=== PATIENT | female | born 1990 | race Caucasian/White ===

== ENCOUNTER 2016-11-23 16:03 | Emergency (ER) | payer OTHER ==
[~2016-11-23] VITALS: Ht 172.7 cm; Wt 136.1 kg
[2016-11-23] MEDS ORDERED: PREDNISONE 20 M20 MG PO (16:55)
[2016-11-23 17:20] VITALS: BP 155/84
== END 2016-11-23 17:21 | disposition home or self-care (01) ==
LOC: ER 16:03
DX: R06.02 Shortness of breath (principal); L29.9 Pruritus, unspecified; T38.5X5A Adverse effect of other estrogens and progestogens, initial encounter; Y92.89 Other specified places as the place of occurrence of the external cause; Z88.0 Allergy status to penicillin; Z88.1 Allergy status to other antibiotic agents; Z88.8 Allergy status to other drugs, medicaments and biological substances

== ENCOUNTER 2017-03-24 11:09 | Emergency (ER) | payer OTHER ==
[~2017-03-24] VITALS: Ht 175.3 cm; Wt 149.7 kg
[~2017-03-24 11:09] MED LIST: PREDNISONE 20 M20 MG PO
[2017-03-24 11:42] LABS: URINE BILIRUBIN NEGATIVE (Negative); URINE BLOOD 1+ (Negative); URINE CLARITY CLEAR; URINE COLOR YELLOW; URINE GLUCOSE-RANDOM* NEGATIVE (Negative); URINE KETONES NEGATIVE (Negative); URINE LEUKOCYTES NEGATIVE (Negative); URINE NITRITE NEGATIVE (Negative); URINE PROTEIN (DIPSTICK) NEGATIVE (Negative); URINE UROBILINOGEN 0.2 E.U./dl (0.2-1.0)
[2017-03-24 11:58] LABS: CASTS None Seen /LPF (None Seen); CRYSTALS None Seen /LPF (None Seen); SQUAMOUS >10 Many /LPF (0-3); URINE WBC 0-5 Rare /HPF (0-5)
[2017-03-24 11:59] LABS: BACTERIA 1-9 Few /HPF (None Seen); URINE RBC 3-10 Few /HPF (0-2)
[2017-03-24] MEDS ORDERED: MOBIC15 MG PO (14:58)
== END 2017-03-24 15:45 | disposition home or self-care (01) ==
LOC: ER 11:09
PROVIDERS: Nurse Practitioner
DX: N83.201 Unspecified ovarian cyst, right side (principal); N93.8 Other specified abnormal uterine and vaginal bleeding; Z88.0 Allergy status to penicillin; Z88.1 Allergy status to other antibiotic agents; Z88.8 Allergy status to other drugs, medicaments and biological substances

== ENCOUNTER 2017-04-10 12:40 | Emergency (ER) | payer OTHER ==
[~2017-04-10] VITALS: Ht 175.3 cm; Wt 145.2 kg
[~2017-04-10 12:40] MED LIST changes: +MOBIC15 MG PO
[2017-04-10] MEDS ORDERED: RIZATRIPTAN10 MG PO (12:55)
[2017-04-10] MEDS ORDERED: NEURONTIN100 MG PO (12:55)
[2017-04-10 13:14] LABS: ABSOLUTE NEUTROPHILS 5.5 thou/uL (1.4-8.2); BASOPHILS 0.8 % (0.0-2.0); EOSINOPHILS 1.2 % (0.0-3.0); HEMOGLOBIN 15.1 gm/dL (12.0-15.0); LYMPHOCYTES 24.2 % (24.0-44.0); MCH 31.1 pg (26.0-34.0); MCHC 34.3 g/dL (28.0-37.0); MCV 90.9 fL (80.0-100.0); MONOCYTES 9.6 % (1.0-8.0); PLATELET COUNT 286 thou/uL (150-400); POLYS 64.2 % (36.0-66.0); RBC 4.84 mil/uL (4.20-5.00); RDW 13.1 % (10.5-14.5); WBC 8.6 thou/uL (4.0-11.0)
[2017-04-10 13:18] LABS: URINE BILIRUBIN NEGATIVE (Negative); URINE BLOOD TRACE (Negative); URINE CLARITY CLEAR; URINE COLOR YELLOW; URINE GLUCOSE-RANDOM* NEGATIVE (Negative); URINE KETONES NEGATIVE (Negative); URINE LEUKOCYTES NEGATIVE (Negative); URINE NITRITE NEGATIVE (Negative); URINE PROTEIN (DIPSTICK) NEGATIVE (Negative); URINE UROBILINOGEN 0.2 E.U./dl (0.2-1.0)
[2017-04-10 13:21] LABS: CREATININE 0.8 mg/dL (0.6-1.0); POTASSIUM 4.2 mmol/L (3.5-5.1)
[2017-04-10 13:27] LABS: ALBUMIN 3.4 g/dL (3.4-5.0); TOTAL BILIRUBIN 0.2 mg/dL (<0.1-1.0); TOTAL PROTEIN 7.3 g/dL (6.4-8.2)
[2017-04-10] MEDS ORDERED: TRAMADOL 50 MG50 MG PO (14:22)
== END 2017-04-10 14:32 | disposition home or self-care (01) ==
LOC: ER 12:40
PROVIDERS: Nurse Practitioner Family
DX: N83.201 Unspecified ovarian cyst, right side (principal); Z88.0 Allergy status to penicillin; Z88.1 Allergy status to other antibiotic agents; Z88.8 Allergy status to other drugs, medicaments and biological substances

== ENCOUNTER 2017-05-26 10:57 | Emergency (ER) | payer OTHER ==
[~2017-05-26] VITALS: Ht 170.2 cm; Wt 145.2 kg
--- NOTE | ~2017-05-26 | EKG ---
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
[~2017-05-26 10:57] MED LIST changes: +NEURONTIN100 MG PO; +RIZATRIPTAN10 MG PO; +TRAMADOL 50 MG50 MG PO
[2017-05-26 11:50] LABS: HEMOGLOBIN 14.9 gm/dL (12.0-15.0); RDW 12.9 % (10.5-14.5)
[2017-05-26 11:52] LABS: ABSOLUTE NEUTROPHILS 5.5 thou/uL (1.4-8.2); BASOPHILS 0.5 % (0.0-2.0); EOSINOPHILS 0.7 % (0.0-3.0); HEMATOCRIT 43.4 % (37.0-47.0); LYMPHOCYTES 15.9 % (24.0-44.0); MCH 31.3 pg (26.0-34.0); MCHC 34.4 g/dL (28.0-37.0); MCV 91.1 fL (80.0-100.0); MONOCYTES 7.2 % (1.0-8.0); PLATELET COUNT 312 thou/uL (150-400); POLYS 75.7 % (36.0-66.0); RBC 4.77 mil/uL (4.20-5.00); WBC 7.2 thou/uL (4.0-11.0)
[2017-05-26 11:59] LABS: ANION GAP 10 mmol/L (7-16); BUN 8 mg/dL (7-18); CALCIUM 9.4 mg/dL (8.5-10.1); CHLORIDE 105 mmol/L (98-107); CO2 24 mmol/L (21-32); CREATININE 0.9 mg/dL (0.6-1.0); GLUCOSE 114 mg/dL (74-106); POTASSIUM 3.8 mmol/L (3.5-5.1); SODIUM 139 mmol/L (136-145)
[2017-05-26 12:10] LABS: TROPONIN-I < 0.04 ng/mL (<0.06)
[2017-05-26 13:12] VITALS: BP 152/80
[2017-05-26] MEDS ORDERED: XANAX1 MG PO (13:28)
== END 2017-05-26 13:42 | disposition home or self-care (01) ==
LOC: ER 10:57
PROVIDERS: Emergency Medicine
DX: R07.89 Other chest pain (principal); F41.9 Anxiety disorder, unspecified; F32.9 Major depressive disorder, single episode, unspecified; Z88.0 Allergy status to penicillin; Z88.8 Allergy status to other drugs, medicaments and biological substances

== ENCOUNTER 2017-09-12 19:17 | Emergency (ER) | payer OTHER ==
[~2017-09-12] VITALS: Ht 175.3 cm; Wt 145.2 kg
--- NOTE | ~2017-09-12 | EKG ---
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
[~2017-09-12 19:17] MED LIST changes: +XANAX1 MG PO
[2017-09-12] MEDS ORDERED: CLONAZEPAM 1 MG1 M1 PO (19:30)
[2017-09-12] MEDS ORDERED: VRAYLAR3 MG PO (19:32)
[2017-09-12] MEDS ORDERED: PROVIGIL 200 M200 MG PO (19:32)
[2017-09-12 19:51] LABS: ABSOLUTE NEUTROPHILS 7.1 thou/uL (1.4-8.2); BASOPHILS 0.8 % (0.0-2.0); EOSINOPHILS 0.8 % (0.0-3.0); HEMATOCRIT 43.4 % (37.0-47.0); HEMOGLOBIN 14.7 gm/dL (12.0-15.0); LYMPHOCYTES 24.6 % (24.0-44.0); MCH 30.8 pg (26.0-34.0); MCHC 33.9 g/dL (28.0-37.0); MCV 90.8 fL (80.0-100.0); PLATELET COUNT 244 thou/uL (150-400); POLYS 66.8 % (36.0-66.0); RBC 4.78 mil/uL (4.20-5.00); RDW 12.7 % (10.5-14.5); WBC 10.7 thou/uL (4.0-11.0)
[2017-09-12 19:59] LABS: ANION GAP 9 mmol/L (7-16); BUN 3 mg/dL (7-18); CALCIUM 8.9 mg/dL (8.5-10.1); CHLORIDE 105 mmol/L (98-107); CO2 23 mmol/L (21-32); CREATININE 0.9 mg/dL (0.6-1.0); GLUCOSE 104 mg/dL (74-106); POTASSIUM 3.5 mmol/L (3.5-5.1); SODIUM 137 mmol/L (136-145)
[2017-09-12 20:05] LABS: ALBUMIN 3.4 g/dL (3.4-5.0); DIRECT BILIRUBIN < 0.1 mg/dL (<0.1-0.3); SGOT 32 U/L (15-37); SGPT 85 U/L (30-65); TOTAL BILIRUBIN 0.3 mg/dL (<0.1-1.0); TOTAL PROTEIN 7.5 g/dL (6.4-8.2)
[2017-09-12] MEDS ORDERED: ZOFRAN ODT4 MG PO (20:14)
[2017-09-12] MEDS ORDERED: PHENERGAN 25 MG25 M1 PO (20:14)
[2017-09-12 20:50] VITALS: BP 145/91
== END 2017-09-12 20:50 | disposition home or self-care (01) ==
LOC: ER 19:17
PROVIDERS: Emergency Medicine
DX: R11.2 Nausea with vomiting, unspecified (principal); R55 Syncope and collapse; H81.09 Meniere's disease, unspecified ear; E28.2 Polycystic ovarian syndrome; F41.9 Anxiety disorder, unspecified; F32.9 Major depressive disorder, single episode, unspecified; Z88.1 Allergy status to other antibiotic agents; Z88.8 Allergy status to other drugs, medicaments and biological substances; Z88.0 Allergy status to penicillin